=== PATIENT | female | born 1935 | race Caucasian/White ===

== ENCOUNTER 2017-04-05 07:14 | Emergency (ER) | payer MEDICARE ==
[~2017-04-05] VITALS: Ht 165.1 cm; Wt 63.5 kg
[2017-04-05] MEDS ORDERED: LOSA50TA20 PO (07:28)
[2017-04-05] MEDS ORDERED: PROP60TA14 PO (07:34)
[2017-04-05] MEDS ORDERED: DERMABOND TOPICAL SKIN ADHESIVE TOP ONE (08:00)
[2017-04-05] MEDS ORDERED: GASTROGRAFIN SOLUTION 30ML PO ONE (08:15)
[2017-04-05 08:29] LABS: BASO % 0.2 % (0.0-1.0); EOS # 0.1 K/mm3 (0.0-0.50); EOS % 1.8 % (0.0-3.0); LARGE UNSTAINED CELL # 0.1 K/mm3 (0.0-0.4); LARGE UNSTAINED CELL % 1.7 % (0.0-4.0); LYMPH # 1.6 K/mm3 (1.5-4.5); LYMPH % 18.8 % (24.0-44.0); MEAN CORPUSCULAR HEMOGLOBIN 29.7 pg (27.0-33.0); MEAN CORPUSCULAR HGB CONC 33.8 g/dl (32.0-36.5); MEAN CORPUSCULAR VOLUME 88.1 fl (80.0-96.0); MONO # 0.5 K/mm3 (0.0-0.8); NEUTROPHILS # 5.5 K/mm3 (1.8-7.7); NEUTROPHILS % 70.4 % (36.0-66.0); PLATELET COUNT, AUTOMATED 230 k/mm3 (150-450); RED CELL DISTRIBUTION WIDTH 12.9 % (11.5-14.5); WHITE BLOOD COUNT 7.8 K/mm3 (4.0-10.0)
[2017-04-05] MEDS ORDERED: GASTROGRAFIN SOLUTION 30ML (Q9963) PO ONE (08:45)
[2017-04-05 08:59] LABS: ALBUMIN 2.2 GM/DL (3.2-5.2); ALBUMIN/GLOBULIN RATIO 0.71 (1.00-1.93); ALKALINE PHOSPHATASE 99 U/L (45-117); ALT/SGPT 35 U/L (12-78); AST/SGOT 25 U/L (15-37); BILIRUBIN,DIRECT < 0.1 MG/DL (0.0-0.2); BILIRUBIN,TOTAL 0.2 MG/DL (0.2-1.0); BLOOD UREA NITROGEN 9 MG/DL (7-18); CARBON DIOXIDE LEVEL 14 MEQ/L (21-32); CREATININE FOR GFR 0.42 MG/DL (0.55-1.02); GLOMERULAR FILTRATION RATE > 60.0 (>39); GLUCOSE, FASTING 62 MG/DL (83-110); TOTAL PROTEIN 5.3 GM/DL (6.4-8.2)
[2017-04-05 09:17] LABS: ANION GAP 17 MEQ/L (8-16); CHLORIDE LEVEL 110 MEQ/L (98-107); POTASSIUM SERUM 4.1 MEQ/L (3.5-5.1); SODIUM LEVEL 141 MEQ/L (136-145)
[2017-04-05] MEDS ORDERED: ISOVUE-370 76% 100ML VIAL (Q9967) As Ordered ONE (09:26)
[2017-04-05 09:31] LABS: CALCIUM LEVEL 9.6 MG/DL (8.8-10.2)
--- NOTE | 2017-04-05 10:11 | REP ---
CT ABDOMEN AND PELVIS WITH IV AND ORAL CONTRAST: HISTORY: Lower abdominal pain. History of diverticulitis. No comparison studies. CT contrast dose: 100 mL of Isovue 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 The lung bases are essentially clear. The liver and the spleen are normal in size homogeneous in texture. Multiple gallstones are seen in the dependent portion the gallbladder. No adrenal lesion is seen on either side. The pancreas shows no abnormality. There is a 0.8 cm accessory splenule adjacent to the tail of the pancreas. There are tiny cortical cysts affecting kidneys bilaterally. The kidneys enhance symmetrically. There is some fullness of the renal pelves bilaterally consistent with extrarenal pelvis configuration. No ureteral lesion or calculus is seen on either side. The patient status post hysterectomy. Urinary bladder is intact. There is left colonic diverticulosis moderate in degree from the splenic flexure. There is mild scattered diverticulosis of the remainder the colon. 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 The appendix is unremarkable. There is no CT evidence of diverticulitis or other inflammatory bowel change. Normal caliber aorta is seen. No retroperitoneal mass or adenopathy is seen. No abdominal wall defect is observed. 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 There is a bone island in the left iliac bone. Degenerative changes are seen in the hips. IMPRESSION: Extensive left colonic diverticulosis. Cholelithiasis. Tiny renal cysts. No acute abdominal or pelvic abnormality seen. Signed by Anupam Tejada MD 04/05/2017 10:19 A
[2017-04-05] MEDS ORDERED: BENT10CA PO (10:28)
[2017-04-05 10:46] VITALS: BP 154/86
== END 2017-04-05 10:50 | disposition home or self-care (01) ==
LOC: M ED 07:56
DX: K57.90 Diverticulosis of intestine, part unspecified, without perforation or abscess without bleeding (principal); K80.20 Calculus of gallbladder without cholecystitis without obstruction; E16.2 Hypoglycemia, unspecified; N28.1 Cyst of kidney, acquired; R19.7 Diarrhea, unspecified; I10 Essential (primary) hypertension; E78.00 Pure hypercholesterolemia, unspecified; H25.9 Unspecified age-related cataract; Z87.440 Personal history of urinary (tract) infections; Z90.79 Acquired absence of other genital organ(s); Z98.82 Breast implant status; Z79.899 Other long term (current) drug therapy; Z88.6 Allergy status to analgesic agent; Z88.2 Allergy status to sulfonamides
CPT/HCPCS: 36415; 74177; 80048; 80076; 81001; 83605; 83690; 85025; 86140; 87086; 99284; Q9963; Q9967

== ENCOUNTER → 2017-04-06 | Outpatient (REF) | payer MEDICARE ==
[~2017-04-06] MED LIST: BENT10CA PO; LOSA50TA20 PO; PROP60TA14 PO
== END ==
LOC: M LAB REF 12:20
PROVIDERS: ATTEND Student in an Organized Health Care Education/Training Program
DX: R19.7 Diarrhea, unspecified (principal)

== ENCOUNTER 2019-03-10 16:54 | Emergency (ER) | payer MEDICARE ==
[~2019-03-10] VITALS: Ht 165.1 cm; Wt 61.8 kg
[~2019-03-10 16:54] MED LIST changes: -LOSA50TA20 PO; +LOSA50TA88 PO
[2019-03-10 17:51] LABS: BASO % 0.5 % (0.0-1.0); EOS # 0.4 10^3/uL (0.0-0.50); EOS % 6.1 % (0.0-3.0); HEMATOCRIT 44.6 % (36.0-47.0); HEMOGLOBIN 14.5 g/dl (12.0-15.5); LYMPH # 2.3 10^3/uL (1.5-4.5); LYMPH % 34.9 % (24.0-44.0); MEAN CORPUSCULAR HEMOGLOBIN 29.7 pg (27.0-33.0); MEAN CORPUSCULAR HGB CONC 32.5 g/dl (32.0-36.5); MEAN CORPUSCULAR VOLUME 91.4 fl (80.0-96.0); MONO # 0.7 10^3/uL (0.0-0.8); MONO % 11.3 % (0.0-5.0); PLATELET COUNT, AUTOMATED 261 10^3/uL (150-450); RED BLOOD COUNT 4.88 10^6/uL (4.00-5.40); WHITE BLOOD COUNT 6.4 10^3/uL (4.0-10.0)
[2019-03-10 18:13] LABS: BLOOD UREA NITROGEN 15 MG/DL (7-18); CALCIUM LEVEL 9.3 MG/DL (8.8-10.2); CARBON DIOXIDE LEVEL 29 MEQ/L (21-32); CHLORIDE LEVEL 109 MEQ/L (98-107); CREATININE FOR GFR 0.88 MG/DL (0.55-1.30); GLOMERULAR FILTRATION RATE > 60.0 (>32); GLUCOSE, FASTING 100 MG/DL (70-100); LIPASE 114 U/L (73-393); POTASSIUM SERUM 5.1 MEQ/L (3.5-5.1); SODIUM LEVEL 144 MEQ/L (136-145)
[2019-03-10 19:09] LABS: CPK CREATINE PHOSPHOKINASE 81 U/L (26-192); MB/CK RELATIVE INDEX 1.36 (< OR =4); TROPONIN I < 0.02 NG/ML (< 0.10)
[2019-03-10 20:18] VITALS: BP 144/99
--- NOTE | 2019-03-11 07:22 | ECGEPIP ---
Stationary ECG Study [facility] - ED Test Date: 2019-03-10 Pat Name: LEON FUNES Department: Room: - Gender: F Appeals Representative: pmo : 1935 Requested By: GABY HICKMAN PA-C Order Number: [id number] Reading MD: Eleanor Arita Measurements Intervals Sage Rate: 68 P: 43 NJ: 167 QRS: -1 QRSD: 80 T: 19 QT: 414 QTc: 442 Interpretive Statements SINUS RHYTHM MINIMAL VOLTAGE CRITERIA FOR LVH, CONSIDER NORMAL VARIANT NSTTW ABNORAMALITY NO PRIOR FOR COMPARISON Electronically Signed On 03-11-2019 7:22:02 EDT by Eleanor Arita
== END 2019-03-10 20:20 | disposition home or self-care (01) ==
LOC: M ED 16:54
DX: R10.9 Unspecified abdominal pain (principal); I10 Essential (primary) hypertension; E78.5 Hyperlipidemia, unspecified; R51 Headache; M81.0 Age-related osteoporosis without current pathological fracture; Z87.19 Personal history of other diseases of the digestive system; Z88.2 Allergy status to sulfonamides; Z88.8 Allergy status to other drugs, medicaments and biological substances

== ENCOUNTER → 2019-04-02 | Outpatient (CLI) | payer MEDICARE ==
--- NOTE | 2019-04-02 12:30 | REP ---
RIGHT FOOT, FOUR VIEWS: HISTORY: Pain. There is no acute fracture or dislocation. There is narrowing of the first metatarsal phalangeal joint space with associated osteophyte formation. The remaining joint spaces are normal in appearance. Osteophytes are present on the inferior and posterior calcaneus. IMPRESSION: There is no acute fracture or dislocation. Electronically Signed by Richard Guzman MD 04/02/2019 12:43 P
== END ==
LOC: M WUC 11:27
PROVIDERS: ATTEND Physician Assistant
DX: M79.671 Pain in right foot (principal)